=== PATIENT | female | born 1950 | race Caucasian/White ===

== ENCOUNTER 2019-01-12 09:33 | Emergency (ER) | payer MEDICARE, OTHER ==
--- OUTSIDE RECORDS SUMMARY | 2019-01-12 09:48 | XMS REPORT | Continuity of Care Document ---
:1950 External Reference #:[id number] Author Name Bia Stern Care Team Providers Name Role Phone Sarah Helms M.D. Care Team Information Engineering Supervisor Unavailable Sarah Helms M.D. Primary Care Physician Unavailable Payers Date Identification Numbers Payment Provider Subscriber Policy Number: [id number] Medicare Part B Yudith Shrestha Group Name: [facility] [address] PayID: [id number] [place] [address] Policy Number: [id number] [facility] HBP ([employer]) Gary Shrestha Group Number: [id number] [facility] PayID: [id number] [place], [place] Effective: 2013 Policy Number: [id number] Medicare Part B Yudith Shrestha Expires: 2018 PayID: [id number] [address] [place] [address] Expires: 2016 Policy Number: [id number] [employer] [facility] Gary Shrestha Group Number: 32 [address] PayID: [id number] [place] [address] Advance Directives Description No Information Available Problems Date Description Provider Status Onset: 12/20/2016 Chronic obstructive lung disease Jitendra George M.D. Active Onset: 12/20/2016 Pure hypercholesterolemia Jitendra George M.D. Active Onset: 12/27/2017 Vascular insufficiency of intestine Jitendra George M.D. Active Family History Date Family Member(s) Observation Comments : (age 84 Years) Father due to Heart Disease : (age 84 Years) Father due to COPD : (age 84 Years) Father due to Dementia : (age 45 Years) Mother due to CO Social History Type Date Description Comments Sex Unknown Tobacco Use Start: Unknown Current Cigarette Smoker 5-10 Cigarettes Daily ETOH Use Rarely consumes alcohol Tobacco Use Reviewed: 01/01/19 Patient is a current smoker, smokes every day Smoking Status Reviewed: 01/01/19 Patient is a current smoker, smokes every day Allergies, Adverse Reactions, Alerts Date Description Reaction Status Severity Comments 12/22/2016 Tylenol With Codeine LIP NUMBNESS AND HAND Active TINGLING Medications Medication Date Status Form Strength Qnty SIG Indications Ordering Provider Rosuvastatin Active Tablets 10mg every Unknown Calcium 000 day Esomeprazole Active Capsules DR 40mg every Unknown Magnesium 000 day Vitamin D3 Active Tablets 2000Unit 1 by Unknown 000 mouth every day Multivitamins Active Capsules 1 by Unknown 000 mouth every day Stiolto Respimat Active Aerosol 2.5-2.5mcg every Unknown 000 /Act day Glucosamine Hx Capsules 1500Com 1 by Unknown Chondroitin 1500 000 - mouth Complex every 018 day Immunizations Description No Information Available Vital Signs Date Vital Result Comment 01/01/2019 9:41am BP Systolic Left Arm 110 mmHg BP Diastolic Left Arm 70 mmHg Weight 153.00 lb Weight 69.401 kg 12/27/2017 9:08am BP Systolic Left Arm 160 mmHg BP Diastolic Left Arm 80 mmHg Weight 158.00 lb Weight 71.669 kg 12/22/2016 3:15pm BP Systolic Right Arm 140 mmHg BP Diastolic Right Arm 80 mmHg BP Systolic Left Arm 140 mmHg BP Diastolic Left Arm 80 mmHg Heart Rate 72 /min Weight 160.00 lb Weight 72.576 kg Pain Level 0 Results Test Date Facility Test Result H/L Range Note Xray 01/01/2019 [facility] Artery Ultrasound <pending> Procedures Date Code Description Status 01/01/2019 70861 Duplex Scan Arterial Inflow/Venous Outflow LTD Completed Abd/Pelv/Retroper 12/27/2017 45470 Duplex Scan Arterial Inflow/Venous Outflow LTD Completed Abd/Pelv/Retroper Encounters Type Date Location Provider Dx Diagnosis Office Visit 12/22/2016 Main Office Jitendra George K55.1 Chronic vascular 3:00p Lay disorders of intestine Plan of Treatment Future Appointment(s):01/08/2020 10:30 am - Jitendra George M.D. at Main [id number]/08/2020 10:00 am - Vascular Lab at Main [facility]4501/01/2019 - Jitendra Semel, M.D.Follow up:1 YEAR OV/US/ MESENTERIC/
[2019-01-12 11:23] VITALS: BP 123/61
--- NOTE | 2019-01-12 11:53 | UC ---
Respiratory Complaint HPI - HPI Summary HPI Summary: Pt c/o nasal and chest congestion, cough, ST X 1 week. - History of Current Complaint Chief Complaint: UCRespiratory Stated Complaint: SORE THROAT Time Seen by Provider: 01/12/19 11:43 Hx Obtained From: Patient ?: No Onset/Duration: Gradual Onset, Lasting Days, Still Present Timing: Constant Severity Initially: Mild Severity Currently: Moderate Pain Intensity: 7 Character: Cough: Productive Aggravating Factors: Exertion, Deep Breaths, Recumbent Position Alleviating Factors: Nothing Associated Signs And Symptoms: Positive: Wheezing, URI, Nasal Congestion - Risk Factors Pulmonary Embolism Risk Factors: Smoking Cardiac Risk Factors: Hypertension, Smoking, Elevated Lipids Pseudomonas Risk Factors: Chronic Lung Disease Tuberculosis Risk Factors: Smoking - Allergies/Home Medications Allergies/Adverse Reactions: Allergies Allergy/AdvReac Type Severity Reaction Status Date / Time acetaminophen Allergy Swelling Verified 01/12/19 11:19 [From Tylenol-Codeine] Of Face,Lips,& Throat codeine Allergy Swelling Verified 01/12/19 11:19 [From Tylenol-Codeine] Of Face,Lips,& Throat Home Medications: Home Medications Chlorphenir/Phenyleph/Aspirin [Becki-Caspian Plus Cold Tab Eff] 1 tab PO ONCE PRN 01/12/19 [History Confirmed 01/12/19] Ergocalciferol (Vitamin D2) [Vitamin D2] 400 unit PO DAILY 01/12/19 [History Confirmed 01/12/19] Esomeprazole Magnesium [Nexium] 40 mg PO DAILY 01/12/19 [History Confirmed 01/12] Glucosamine Sulfate Dipot Chlr [Glucosamine] 1 tab PO DAILY 01/12/19 [History Confirmed 01/12/19] Rosuvastatin Calcium [Crestor] 10 mg PO DAILY 01/12/19 [History Confirmed ] PMH/Surg Hx/FS Hx/Imm Hx Previously Healthy: Yes - Surgical History Surgical History: Yes Surgery Procedure, Year, and Place: tubal ligation,. bunionectomy - Family History Known Family History: Positive: Cardiac Disease - Social History Occupation: Retired Lives: With Family Alcohol Use: None Substance Use Type: None Smoking Status (MU): Heavy Every Day Tobacco Smoker Amount Used/How Often: 12-13cig /day Have You Smoked in the Last Year: Yes Household Exposure Type: Cigarettes - Immunization History Vaccination Up to Date: No Review of Systems All Other Systems Reviewed And Are Negative: Yes Constitutional: Positive: Negative Skin: Positive: Negative Eyes: Positive: Negative ENT: Positive: Sore Throat, Sinus Congestion Respiratory: Positive: Cough Cardiovascular: Positive: Negative Gastrointestinal: Positive: Negative Genitourinary: Positive: Negative Motor: Positive: Negative Neurovascular: Positive: Negative Musculoskeletal: Positive: Negative Neurological: Positive: Negative Psychological: Positive: Negative Is Patient Immunocompromised?: No Physical Exam Triage Information Reviewed: Yes Appearance: Ill-Appearing Vital Signs: Initial Vital Signs Temp 97.9 F 01/12/19 11:10 Pulse 64 01/12/19 11:10 Resp 18 01/12/19 11:10 BP 123/61 01/12/19 11:10 Pulse Ox 97 01/12/19 11:10 Vital Signs Reviewed: Yes Eye Exam: Normal ENT: Positive: Nasal congestion Dental Exam: Normal Neck exam: Normal Neck: Positive: Supple Respiratory: Positive: Decreased breath sounds, Wheezing Cardiovascular Exam: Normal Musculoskeletal Exam: Normal Neurological Exam: Normal Psychological Exam: Normal Skin Exam: Normal Respiratory Course/Dx - Differential Dx/Diagnosis Differential Diagnosis/HQI/PQRI: Bronchitis, Exacerbation Of COPD, Lower Resp Infection, Pneumothorax Provider Diagnosis: COPD exacerbation, Sore throat Discharge - Sign-Out/Discharge Documenting (check all that apply): Patient Departure All imaging exams completed and their final reports reviewed: No Studies - Discharge Plan Condition: Stable Disposition: HOME Prescriptions: Albuterol HFA INHALER* [Ventolin HFA Inhaler*] 1 - 2 puff INH Q4H PRN #1 mdi PRN Reason: Sob/Wheezing Amoxicillin PO (*) [Amoxicillin 500 MG CAP*] 500 mg PO Q12H #20 cap Cetirizine* [ZyrTEC 10 MG TAB*] 10 mg PO DAILY #10 tab predniSONE TAB* [Deltasone 20 MG TAB*] 20 mg PO DAILY #4 tab Patient Education Materials: Pharyngitis (ED), COPD (Chronic Obstructive Pulmonary Disease) (DC) Referrals: Sarah Helms MD [Primary Care Provider] - If Needed - Billing Disposition and Condition Condition: STABLE Disposition: Home - Attestation Statements Provider Attestation: Per institutional requirements, I have reviewed the chart, however, I was not consulted specifically or made aware of this patient by the midlevel provider. I did not personally evaluate, interact with , or disposition this patient.
== END 2019-01-12 12:09 | disposition home or self-care (01) ==
LOC: UCCORT 09:33
DX: J44.1 Chronic obstructive pulmonary disease with (acute) exacerbation (principal); J02.9 Acute pharyngitis, unspecified; F17.210 Nicotine dependence, cigarettes, uncomplicated; Z88.5 Allergy status to narcotic agent; Z88.8 Allergy status to other drugs, medicaments and biological substances
CPT/HCPCS: 99202; G0463